=== PATIENT | male | born 1960 | race Caucasian/White ===

== ENCOUNTER → 2019-04-22 | Outpatient (CLI) | payer BC, MEDICAID ==
[~2019-04-22] MED LIST: AZIT500T47 PO; IOPAMIDOL 76% 100 ML INFUS BTL 100 ML ONE; LOR5 PO; NS(*) 0.9% 50 ML BAG 50 ML ONE
[2019-04-22 09:08] LABS: LDL CHOLESTEROL 106 mg/dl
--- NOTE | 2019-04-22 10:18 | RADIOLOGY IMAGING REPORT ---
FACILITY: [facility] - [place] PATIENT NAME: Jerrod Santizo : 1960 MR: [id number] V: [id number] EXAM DATE: ORDERING PHYSICIAN: CESAR SANTOS TECHNOLOGIST: Location: [facility] Patient: Jerrod Santizo : 1960 Visit/Account:[id number] Date of Sevice: 04/22/2019 CT CTA AORTA W/RUNOFF HISTORY: TECHNIQUE: Bolus intravenous contrast enhanced thin section spiral scan was obtained from the upper abdomen thro ugh the toes. Reconstruction of the source data set includes mulitplanar 2D in the sagital and smith l planes, and 3D coronal thin slab MIP series. Flight Engineer Performance Qualified images have been stored on PACS. One of the following dose optimization techniques was utilized in the performance of this exam: Autom ated exposure control; adjustment of the mA and/or kV according to the patient's size; or use of an i terative reconstruction technique. Specific details can be referenced in the facility's radiology C T exam operational policy. Contrast: 125 mL Isovue-370 IV COMPARISON: CT abdomen/pelvis 08/02/2017 FINDINGS: Angiographic findings: Visualized chest: Heart mildly enlarged. Visualized distal most descending thoracic aorta normal miguel iber and unremarkable. Abdominal aorta: Very mild atherosclerosis distal infrarenal segment, otherwise normal caliber and un remarkable. Branch vessels: Celiac, superior mesenteric and inferior mesenteric arteries normal caliber and unrem arkable. Splenic artery very mildly atherosclerotic but otherwise unremarkable, normal caliber and g rossly patent throughout. Single bilateral renal arteries normal caliber and unremarkable. Iliacs: Very mild atherosclerosis distal common iliac arteries bilateral. Common, internal and extra renal iliac arteries otherwise normal caliber and unremarkable. Right lower extremity: Common femoral artery: Very mild atherosclerosis, otherwise unremarkable. Femoral artery: Negative Popliteal artery and bifurcation: Negative Trifurcation vessels: Negative Left lower extremity: Common femoral artery: Negative Femoral artery: Mild asymmetric but not visually significant narrowing of the SFA/popliteal junction at adductor canal. Popliteal artery and bifurcation: Negative Trifurcation vessels: Negative Additional non-angiographic findings: Stable pulmonary micronodule right lung base. Mild chronic atelectasis lingula. Gallbladder surgically absent. Chronic sequela of prior splenic infarct. Small accessory splenule p osterior. Several small low attenuating right renal lesions, likely cysts. Several scattered coloni c diverticula. Predominantly macroscopic fatty lesion with very small peripheral foci of soft tissue density along t he aortic bifurcation and proximal most left common iliac artery 4.2 x 4.2 x 4.5 cm in greatest dimen sions ( and ). Although more subtle on prior exam, this has increased in size where it prev iously measured 3.1 x 3.3 x 4.0 cm. IMPRESSION: 1. Unremarkable CTA runoff. Only very mild atherosclerosis detailed above. Slight asymmetry of the left SFA/popliteal artery as it traverses abductor canal but of unlikely clinical significance and l ess there is clinical concern for left lower extremity claudication. 2. Chronic sequela of prior splenic infarct. 3. Incidentally noted retroperitoneal predominantly macroscopic fatty but partially soft tissue mass detailed above. 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 If not resected, 3-[address] follow-up should be performed. Report Dictated By: Luisito Aguillon MD at 04/22/2019 9:55 AM Report E-Signed By: Luisito Aguillon MD at 04/22/2019 10:14 AM WSN:[email or web address]
== END ==
LOC: CT 00:53
PROVIDERS: ATTEND Nurse Practitioner Psychiatric/Mental Health
DX: D68.9 Coagulation defect, unspecified (principal)
CPT/HCPCS: 36415; 75635; 85027; J7050; Q9967; 82040; 82247; 82310; 82374; 82435; 82465; 82565; 82947; 83718; 84075; 84132; 84155; 84295; 84450; 84460; 84478; 84520

== ENCOUNTER → 2019-06-22 | Outpatient (CLI) | payer MEDICAID ==
[~2019-06-22] MED LIST changes: -IOPAMIDOL 76% 100 ML INFUS BTL 100 ML ONE; -NS(*) 0.9% 50 ML BAG 50 ML ONE
--- NOTE | 2019-06-22 11:22 | RADIOLOGY IMAGING REPORT ---
FACILITY: [facility] - [place] PATIENT NAME: Jerrod Santizo : 1960 MR: [id number] V: [id number] EXAM DATE: ORDERING PHYSICIAN: LORENZO HOBBS TECHNOLOGIST: Location: [facility] [place] Patient: Jerrod Santizo : 1960 Visit/Account:[id number] Date of Sevice: 06/22/2019 Exam type: CHEST PA LAT History: Hypertension Comparison: August 02, 2017. Findings: Cardiomegaly appears well totally unchanged. Extremely prominent central pulmonary arteries again se en which can be seen with pulmonary arterial hypertension. There is moderate ectasia the thoracic ao rta There is mild chronic peribronchial thickening bilaterally. No evidence of overt pulmonary edema or acute appearing infiltrates or pleural effusions. There are spondylotic changes of the thoracic spine. IMPRESSION: 1. Cardiomegaly, moderate ectasia the thoracic aorta and prominent central pulmonary arteries appear relatively unchanged when compared the prior study Mild chronic peribronchial thickening Report Dictated By: Vidya Mcclain MD at 06/22/2019 11:12 AM Report E-Signed By: Vidya Mcclain MD at 06/22/2019 11:14 AM WSN:[id number]
--- NOTE | 2019-06-22 14:38 | RADIOLOGY IMAGING REPORT ---
FACILITY: [facility] [place] PATIENT NAME: Jerrod Santizo : 1960 MR: [id number] V: [id number] EXAM DATE: ORDERING PHYSICIAN: LORENZO HOBBS TECHNOLOGIST: Location: [facility] [place] Patient: Jerrod Santizo : 1960 Visit/Account:[id number] Date of Sevice: 06/22/2019 NM VENTILATION & PERFUSION EXAMINATION: Nuclear Medicine Ventilation Perfusion Lung Scan Additional Pertinent history: On blood thinner. Pulmonary hypertension. COMPARISON STUDIES: X-ray examination of the chest from June 22, 2019. CTA abdomen and pelvis wit h runoff April 22. CTA of the chest July 2017. TECHNIQUE: 34.2 mCi Xenon gas was administered by inhalation. Static, re-breathing and washout images were obtai rosario. 2.4 mCi Tc MAA was injected intravenously. Gamma camera images were obtained of the chest in various orientations. FINDINGS: Lung ventilation radiotracer distribution: Multiple obliquities demonstrate aspiration of the ventila reza material with scintigraphic uptake noted in the proximal small bowel. There is central clumping indicative of turbulent air flow. Matched defect from cardiac enlargement. There is no evidence of a mismatched perfusion defect. Correlation to chest x-ray: Cardiac enlargement with prominent main and central pulmonary arteries. Lungs are clear. No effusion or pneumothorax. Postprocessing includes determination of relative function for the upper, middle, and lower thirds of each lung on both ventilation and perfusion imaging. FINDINGS: Quantitative function: Perfusion / ventilation (geometric mean % ratios) Left upper: 13.8 / 12.8 Right upper: 12.6 / 8.2 Left middle: 19.5 / 22.6 Right middle: 35.5 / 38.2 Left lower: 6.2 / 5.3 Right lower: 12.5 / 13.1 IMPRESSION: 1. Negative examination for DVT. Via modified PIOPED criteria low probability for pulmonary embolus . 2. No scintigraphic evidence for chronic pulmonary emboli 3. Central clumping of the aerosolized technetium indicative of turbulent flow seen with COPD. 4. Quantitative function as above Report Dictated By: Jairo Boston MD at 06/22/2019 1:56 PM Report E-Signed By: Jairo Boston MD at 06/22/2019 2:30 PM WSN:[email or web address]
== END ==
LOC: NUC 00:59
PROVIDERS: ATTEND Internal Medicine Cardiovascular Disease
DX: I51.7 Cardiomegaly (principal); I77.810 Thoracic aortic ectasia
CPT/HCPCS: 71046; 78582; A9540; A9567

== ENCOUNTER → 2019-06-24 | Outpatient (CLI) | payer MEDICAID ==
[2019-06-24 11:12] LABS: INR 1.16
== END ==
LOC: LAB 10:07
PROVIDERS: ATTEND Internal Medicine Cardiovascular Disease
DX: I27.20 Pulmonary hypertension, unspecified (principal); Q21.1 Atrial septal defect
CPT/HCPCS: 36415; 82310; 82374; 82435; 82565; 82947; 84132; 84295; 84520; 85027; 85610